=== PATIENT | female | born 1950 | race Caucasian/White ===

== ENCOUNTER 2024-03-25 12:47 | Emergency (ER) | payer OTHER ==
[~2024-03-25] VITALS: Ht 152.4 cm; Wt 86.2 kg
[2024-03-25 13:01] VITALS: BP 148/61; PULSE 71; RESP 17; TEMP 97.9; O2SAT 96
== END 2024-03-25 15:52 | disposition home or self-care (01) ==
LOC: MED 12:47
DX: S83.91XA Sprain of unspecified site of right knee, initial encounter (principal); W18.39XA Other fall on same level, initial encounter; Y93.89 Activity, other specified; Y92.89 Other specified places as the place of occurrence of the external cause; Y99.8 Other external cause status
CPT/HCPCS: 73564; 99283